=== PATIENT | male | born 1970 | race Caucasian/White ===

== ENCOUNTER 2021-06-07 18:53 | Inpatient (IN) ==
[2021-06-09] MEDS ORDERED: TESTOSTERONE CYPIONATE 200 MG/ML IM SCH (17:15)
[2021-06-09] MEDS ORDERED: Ondansetron ODT 4 MG TAB.RAPDIS SL PRN (17:17)
[2021-06-09] MEDS: Baclofen 10 MG TABLET PO SCH (17:50)
[2021-06-09] MEDS: hydrALAZINE 25 MG TABLET PO SCH (17:51)
[2021-06-09] MEDS: CIDER VINEGAR PO SCH (17:51)
[2021-06-09] MEDS: tiZANidine 4 MG TABLET PO SCH (20:41)
[2021-06-09] MEDS: traZODone 50 MG TABLET PO SCH (20:44)
[2021-06-10 07:25] LABS: Basophils % 0.5 %; Eosinophils # 0.5 K/mcL (0.0-0.6); Hematocrit 34.8 % (37.5-50.1); Hemoglobin 11.6 g/dL (12.9-16.9); Immature Granulocytes % 0.6 % (0-4); Lymphocytes % 23.6 %; Mean Corpuscular HGB Conc 33.3 g/dL (31.6-35.5); Mean Corpuscular Hemoglobin 30.7 pg (28.0-33.3); Mean Corpuscular Volume 92.1 fL (83.0-100.0); Monocytes # 0.7 K/mcL (0.0-1.3); Neutrophils # 5.2 K/mcL (1.6-8.9); Platelet Count 310 K/mcL (140-400); Red Blood Count 3.78 M/mcL (4.19-5.50); Red Cell Distribution Width 11.9 % (11.5-14.5); Segmented Neutrophils % 61.3 %; White Blood Count 8.5 K/mcL (4.3-11.1)
[2021-06-10 07:48] LABS: BUN/Creatinine Ratio 19 (6-26); Blood Urea Nitrogen 23 mg/dL (6-20); Calcium 9.2 mg/dL (8.6-10.3); Carbon Dioxide 33 mEq/L (23-29); Chloride 98 mEq/L (98-107); Glucose 96 mg/dL (70-105); Osmolality,Calculated 288 (280-300); Potassium 3.9 mEq/L (3.5-5.1); Sodium 137 mEq/L (136-145); eGFR For African Americans > 60 (> 60); eGFR For Non-African Americans > 60 (> 60)
[2021-06-10] MEDS: Gabapentin 300 MG CAPSULE PO SCH (09:57)
[2021-06-10] MEDS: amLODIPine 5 MG TABLET PO SCH (09:57)
[2021-06-10] MEDS: hydrALAZINE 25 MG TABLET PO SCH ×4 (09:57→23:54)
[2021-06-10] MEDS: Cholecalciferol (D-3) 1,000 UNIT (25MCG) TABLET PO SCH (09:57)
[2021-06-10] MEDS: Aspirin Enteric Coated 81 MG Tablet PO SCH (09:57)
[2021-06-10] MEDS: (Omega-3/Dha/Epa/Fish Oil [Fish Oil 1,000 Mg Softgel]) PO SCH (09:58)
[2021-06-10] MEDS: CIDER VINEGAR PO SCH ×2 (09:58→22:54)
[2021-06-10] MEDS: Baclofen 10 MG TABLET PO SCH ×2 (09:58→22:52)
[2021-06-10] MEDS: carvediloL 25 MG TABLET PO SCH ×2 (09:58→17:27)
[2021-06-10] MEDS ORDERED: TESTOSTERONE CYPIONATE 200 MG/ML IM SCH (13:00)
[2021-06-10] MEDS: Gabapentin 400 MG CAPSULE PO SCH (17:27)
[2021-06-10] MEDS: traZODone 50 MG TABLET PO SCH (22:53)
[2021-06-10] MEDS: tiZANidine 4 MG TABLET PO SCH (22:53)
[2021-06-10] MEDS: *HR* HYDROcodone/Acet 7.5/325 mg TABLET PO PRN (22:59)
[2021-06-11] MEDS: *HR* Enoxaparin 40 MG/0.4 ML SYRINGE SQ SCH (06:42)
[2021-06-11] MEDS: Cholecalciferol (D-3) 1,000 UNIT (25MCG) TABLET PO SCH (09:39)
[2021-06-11] MEDS: carvediloL 25 MG TABLET PO SCH ×2 (09:39→17:40)
[2021-06-11] MEDS: amLODIPine 5 MG TABLET PO SCH (09:39)
[2021-06-11] MEDS: Aspirin Enteric Coated 81 MG Tablet PO SCH (09:39)
[2021-06-11] MEDS: Baclofen 10 MG TABLET PO SCH ×2 (09:39→21:07)
[2021-06-11] MEDS: hydrALAZINE 25 MG TABLET PO SCH ×2 (09:39→21:07)
[2021-06-11] MEDS: Gabapentin 300 MG CAPSULE PO SCH (09:39)
[2021-06-11] MEDS: CIDER VINEGAR PO SCH ×2 (09:40→21:11)
[2021-06-11] MEDS: *HR* HYDROcodone/Acet 7.5/325 mg TABLET PO PRN ×3 (09:40→22:00)
[2021-06-11] MEDS: (Omega-3/Dha/Epa/Fish Oil [Fish Oil 1,000 Mg Softgel]) PO SCH (09:40)
[2021-06-11] MEDS: Gabapentin 400 MG CAPSULE PO SCH (17:40)
[2021-06-11] MEDS: traZODone 50 MG TABLET PO SCH (21:06)
[2021-06-11] MEDS: tiZANidine 4 MG TABLET PO SCH (21:07)
[2021-06-12] MEDS: *HR* Enoxaparin 40 MG/0.4 ML SYRINGE SQ SCH (06:06)
[2021-06-12] MEDS: Gabapentin 300 MG CAPSULE PO SCH (06:44)
[2021-06-12] MEDS: amLODIPine 5 MG TABLET PO SCH (06:44)
[2021-06-12] MEDS: Baclofen 10 MG TABLET PO SCH (06:44)
[2021-06-12] MEDS: hydrALAZINE 25 MG TABLET PO SCH (06:44)
[2021-06-12] MEDS: carvediloL 25 MG TABLET PO SCH ×2 (06:45→17:14)
[2021-06-12] MEDS: Aspirin Enteric Coated 81 MG Tablet PO SCH (06:48)
[2021-06-12] MEDS: CIDER VINEGAR PO SCH (06:49)
[2021-06-12] MEDS: (Omega-3/Dha/Epa/Fish Oil [Fish Oil 1,000 Mg Softgel]) PO SCH (06:49)
[2021-06-12] MEDS: Cholecalciferol (D-3) 1,000 UNIT (25MCG) TABLET PO SCH (06:50)
[2021-06-12] MEDS: Gabapentin 400 MG CAPSULE PO SCH (17:14)
[2021-06-13 16:10] VITALS: BP 102/64; PULSE 69; RESP 19; TEMP 97.6; O2SAT 99
== END 2021-06-12 18:29 | disposition short-term general hospital (02) | DRG 949 ==
LOC: INPPIK 06-09 17:20
PROVIDERS: ADMIT Family Medicine; ATTEND Family Medicine